=== PATIENT | male | born 1935 | race Caucasian/White ===

== ENCOUNTER 2016-12-29 10:12 | Outpatient (CLI) | payer OTHER, BC ==
--- NOTE | 2016-12-29 14:16 | DIAGNOSTIC IMAGING REPORT ---
PROCEDURE: US BILATERAL CAROTID DOPPLER INDICATION: R BRUIT TECHNIQUE: Color Doppler duplex imaging of the carotid and vertebral vessels. COMPARISON: Carotid ultrasound 11/22/2015 FINDINGS: Right carotid system: No significant stenosis visualized. The waveforms are normal. Moderate plaque in the right carotid with less than 15% narrowing Left carotid system: No significant stenosis visualized. The waveforms are normal. Vertebral System: Antegrade vertebral artery flow bilaterally. Right common carotid artery peak systolic velocity 63 cm/second. Right internal carotid artery peak systolic velocity 68 cm/second. Right external carotid artery peak systolic velocity 109 cm/second. Right ltctorgl-om-khnkoy carotid artery ratio 1.1 Right vertebral artery peak systolic velocity 50 eight cm/second. Left common carotid artery peak systolic velocity 61 cm/second. Left internal carotid artery peak systolic velocity 73 cm/second. Left external carotid artery peak systolic velocity 82 cm/second. Left brxqcuxb-yp-pdzere carotid artery ratio 1.2 Left vertebral artery peak systolic velocity 35 cm/second. IMPRESSION: 1. No hemodynamically significant stenosis in either carotid system. 2. Antegrade vertebral artery flow bilaterally. Velocity criteria are extrapolated from diameter data as defined by the Society of Radiologists in Ultrasound Consensus Conference, Radiology 2003; 229; 340-346.
--- NOTE | 2016-12-29 14:16 | DIAGNOSTIC IMAGING REPORT ---
PROCEDURE: US BILATERAL CAROTID DOPPLER INDICATION: R BRUIT TECHNIQUE: Color Doppler duplex imaging of the carotid and vertebral vessels. COMPARISON: Carotid ultrasound 11/22/2015 FINDINGS: Right carotid system: No significant stenosis visualized. The waveforms are normal. Moderate plaque in the right carotid with less than 15% narrowing Left carotid system: No significant stenosis visualized. The waveforms are normal. Vertebral System: Antegrade vertebral artery flow bilaterally. Right common carotid artery peak systolic velocity 63 cm/second. Right internal carotid artery peak systolic velocity 68 cm/second. Right external carotid artery peak systolic velocity 109 cm/second. Right wjivbqpi-nm-wvaiej carotid artery ratio 1.1 Right vertebral artery peak systolic velocity 50 eight cm/second. Left common carotid artery peak systolic velocity 61 cm/second. Left internal carotid artery peak systolic velocity 73 cm/second. Left external carotid artery peak systolic velocity 82 cm/second. Left jnsufhyw-rx-cfflrj carotid artery ratio 1.2 Left vertebral artery peak systolic velocity 35 cm/second. IMPRESSION: 1. No hemodynamically significant stenosis in either carotid system. 2. Antegrade vertebral artery flow bilaterally. Velocity criteria are extrapolated from diameter data as defined by the Society of Radiologists in Ultrasound Consensus Conference, Radiology 2003; 229; 340-346.
--- NOTE | 2016-12-30 10:18 | DIAGNOSTIC IMAGING REPORT ---
PROCEDURE: 2-D M-mode echo Doppler. CLINICAL INDICATION: Mitral regurgitation TECHNIQUE: Standard technique COMPARISON: None available FINDINGS: Aortic valve exhibits sclerosis without stenosis. The mitral valve is normal configuration trace to 1+ MR detected no stenosis seen the tricuspid and pulmonic valves are normal. RVSP is normal 25. LVH is present left and right atrial dimensions show mild dilation. Right ventricular size and function is normal. Ventricular ejection fraction is 67% with normal contraction grade 2 diastolic dysfunction present. There are no abnormalities of the aortic order pericardium appreciated. IMPRESSION: Aortic sclerosis no stenosis Trace to 1+ MR Left ventricular ejection fraction 67% Grade 2 diastolic dysfunction Normal right heart pressures LVH Mild biatrial enlargement
== END 2016-12-29 23:00 ==
LOC: US SRH 10:12
DX: I34.0 Nonrheumatic mitral (valve) insufficiency (principal)